=== PATIENT | male | born 1965 | race Caucasian/White ===

== ENCOUNTER → 2021-03-12 17:14 | Outpatient (CLI) | payer BC, SELFPAY ==
--- NOTE | ~2021-03-12 | XR_ITS ---
EXAMINATION: XR knee RT 2V DATE: 03/12/2021 19:04 INDICATION: Right knee pain TECHNIQUE: Standing AP and lateral views of the right knee were obtained. COMPARISON: None. FINDINGS: Alignment is normal. No fracture. Mild joint space narrowing in the lateral compartment. No right kne e joint effusion. Soft tissues are unremarkable. IMPRESSION: 1. Mild osteoarthritis at the lateral compartment of the right knee. Reviewed, dictated and finalized at location A.
== END ==
PROVIDERS: Visit Provider Family Medicine
DX: M17.11 Unilateral primary osteoarthritis, right knee (principal)
CPT/HCPCS: 73560